=== PATIENT | female | born 1985 | race Caucasian/White ===

== ENCOUNTER 2020-01-28 00:33 | Emergency (ER) | payer BC, MEDICAID ==
[~2020-01-28] VITALS: Ht 165.1 cm; Wt 54.4 kg
--- NOTE | 2020-01-28 00:45 | NUR ---
Patient ambulated with stable gait. A/Ox4. Speech is clear, speaks in complete sentences. No acute neuro deficits noted. Patient came for RLQ abd main, no rebound tenderness, pain starts from upper thigh and radiates towards right flank., Denies any n/v/d, or any issues with . Patient in bed at lowest position, sr upx2, call light within reach. Fall precautions implemented per protocol.
--- NOTE | 2020-01-28 00:51 | NUR ---
ERMD at bedside for MSE
[2020-01-28 00:59] LABS: *BILIRUBIN,URIN NEGATIVE (NEGATIVE); *BLOOD, URINE 2+ (NEGATIVE); *CLARITY,URINE CLEAR (CLEAR); *COLOR,URINE YELLOW (YELLOW); *KETONES,URINE NEGATIVE (NEGATIVE); *UROBILINOGEN,URINE 0.2 E.U./dl (NORMAL); LEUKOCYTE ESTERASE ,URINE TRACE (NEGATIVE); NITRITE, URINE NEGATIVE (NEGATIVE); UGLUCOSE NEGATIVE (NEGATIVE)
--- NOTE | 2020-01-28 00:59 | NUR ---
Patient refused IV insertion. ERMD made aware.
[2020-01-28] MEDS ORDERED: KETOROLAC TROMETHAMINE 30 MG INJ IVP ONE (01:00)
[2020-01-28] MEDS ORDERED: IV NS 1000 ML 1,000 ML IV ONE (01:00)
[2020-01-28] MEDS ORDERED: IBUPROFEN 600 MG TABLET PO ONE (01:00)
[2020-01-28 01:05] LABS: BACTERIA,URINE NONE SEEN /HPF (NONE SEEN); SQUAMOUS EPITHELIAL CELL,UR MODERATE /HPF (NONE SEEN)
[2020-01-28 01:06] LABS: *URINE HCG, QUAL NEGATIVE (NEGATIVE)
[2020-01-28 01:15] LABS: BASOPHILS % (AUTO) 0.5 % (0.0-2.0); EOSINOPHILS # (AUTO) 0.2 K/uL (0.0-0.7); EOSINOPHILS % (AUTO) 3.7 % (0.0-7.0); HEMATOCRIT 34.9 % (31.2-41.9); HEMOGLOBIN 11.8 g/dL (10.9-14.3); LYMPHOCYTES # (AUTO) 2.7 K/uL (20.0-40.0); LYMPHOCYTES % (AUTO) 47.3 % (20.5-51.5); MEAN CORPUSCULAR HEMOGLOBIN 30.3 uug (24.7-32.8); MEAN CORPUSCULAR HGB CONC 34 g/dL (32.3-35.6); MEAN CORPUSCULAR VOLUME 89.9 fL (75.5-95.3); MONOCYTES # (AUTO) 0.3 K/uL (2.0-10.0); MONOCYTES % (AUTO) 5.5 % (0.0-11.0); NEUTROPHILS # (AUTO) 2.5 K/uL (1.8-8.9); PLATELET COUNT (AUTO) 209 K/uL (179-408); RED BLOOD CELL COUNT(AUTO) 3.88 MIL/uL (3.63-4.92); WHITE BLOOD COUNT (AUTO) 5.8 K/uL (3.8-11.8)
[2020-01-28 01:18] LABS: CREATININE 0.7 mg/dL (0.6-1.3); POTASSIUM 3.8 mmol/L (3.5-5.1)
[2020-01-28 01:24] LABS: BILIRUBIN,DIRECT 0.1 mg/dL (0.0-0.2); BILIRUBIN,TOTAL 0.2 mg/dL (0.2-1.0); TOTAL PROTEIN, SERUM 7.5 g/dL (6.4-8.2)
--- NOTE | 2020-01-28 01:24 | NUR ---
Patient taken to CT in stable condition.
--- NOTE | 2020-01-28 01:39 | NUR ---
Patient back in room from CT. In stable condition.
[2020-01-28] MEDS ORDERED: IBUPROFEN 600 MG TABLET ONE (01:56)
--- NOTE | 2020-01-28 02:11 | NUR ---
Patient in bed at lowest position, NAD, VSS at this time. Awaiting US tech for scan.
--- NOTE | 2020-01-28 02:34 | NUR ---
Female maintenance engineer, Cuca, accompanied female patient for pelvic ultrasound.
[2020-01-28 03:32] VITALS: BP 118/73
--- NOTE | 2020-01-28 03:32 | NUR ---
Patient discharged to home in stable condition. Written and verbal after care instructions given. Patient verbalizes understanding of instructions. Stressed follow up or return to ER for worsening s/s. Patient ambulated with stable gait.
== END 2020-01-28 03:32 | disposition home or self-care (01) ==
LOC: ER 00:36
DX: R19.09 Other intra-abdominal and pelvic swelling, mass and lump (principal); N39.0 Urinary tract infection, site not specified; R10.31 Right lower quadrant pain; Z82.49 Family history of ischemic heart disease and other diseases of the circulatory system
CPT/HCPCS: 36415; 76856; 83690; 84703; 85025; 87086; A4663; J7030